=== PATIENT | female | born 1995 | race Caucasian/White ===

== ENCOUNTER 2020-04-07 19:10 | Outpatient (CLI) | payer OTHER ==
[2020-04-07 20:11] LABS: APPEARANCE,URINE CLEAR; BILIRUBIN,URINE NEGATIVE (NEGATIVE); COLOR,URINE YELLOW; GLUCOSE, URINE NEGATIVE (NEGATIVE); KETONES,URINE NEGATIVE (NEGATIVE); LEUKOCYTE ESTERASE,URINE NEGATIVE (NEGATIVE); NITRITE,URINE NEGATIVE (NEGATIVE); PROTEIN,URINE NEGATIVE (NEGATIVE); URINE SPECIFIC GRAVITY 1.011; UROBILINOGEN,URINE NEGATIVE mg/dL (<2.0)
[2020-04-07 20:22] LABS: URINE AMPHETAMINES SCREEN NEGATIVE; URINE BARBITURATES SCREEN NEGATIVE; URINE BENZODIAZEPINES SCREEN NEGATIVE; URINE COCAINE SCREEN NEGATIVE; URINE MARIJUANA (THC) SCREEN NEGATIVE; URINE METHADONE SCREEN NEGATIVE; URINE PHENCYCLIDINE SCREEN NEGATIVE
[2020-04-07] MEDS ORDERED: RINGERS SOLUTION,LACTATED 1,000 ML IV PRN (20:24)
[2020-04-07] MEDS ORDERED: CEFTRIAXONE INJ 1000 MG VIAL ONE (20:27)
[2020-04-07] MEDS ORDERED: CEFTRIAXONE INJ 1000 MG VIAL IM ONE (21:00)
== END 2020-04-07 21:42 | disposition home or self-care (01) ==
LOC: LC 19:10
PROVIDERS: ATTEND Obstetrics & Gynecology
DX: Z34.92 Encounter for supervision of normal pregnancy, unspecified, second trimester (principal); Z3A.26 26 weeks gestation of pregnancy
CPT/HCPCS: 59899; 87086; 81001; 80307; J0696

== ENCOUNTER 2020-06-29 06:47 | Inpatient (IN) | payer OTHER ==
[2020-06-29] MEDS ORDERED: RINGERS SOLUTION,LACTATED 500 ML IV ONE (07:19)
[2020-06-29] MEDS ORDERED: RINGERS SOLUTION,LACTATED 1,000 ML IV ONE (07:19)
[2020-06-29] MEDS ORDERED: MISOPROSTOL 0.2 MG TABLET ONE (07:25)
[2020-06-29] MEDS ORDERED: OXYTOCIN 10 UNIT/ML VIAL ONE ×2 (07:25→15:48)
[2020-06-29] MEDS ORDERED: FENTANYL/BUPIVACAINE/NS/PF 300 MCG/150 ML RTUINJ EPI ONE (07:26)
[2020-06-29] MEDS ORDERED: OXYTOCIN/0.9 % SODIUM CHLORIDE 30 UNIT/500 ML RTUINJ ONE (07:26)
[2020-06-29] MEDS ORDERED: EPHEDRINE SULFATE INJ 50 MG/1 ML AMPULE ONE (07:26)
[2020-06-29] MEDS ORDERED: ROPIVACAINE HCL 0.5% INJ/PF (5 MG/1 ML) 30 ML SDV ONE (07:28)
[2020-06-29 07:45] LABS: APPEARANCE,URINE CLOUDY; BILIRUBIN,URINE NEGATIVE (NEGATIVE); COLOR,URINE YELLOW; GLUCOSE, URINE NEGATIVE (NEGATIVE); KETONES,URINE NEGATIVE (NEGATIVE); LEUKOCYTE ESTERASE,URINE TRACE (NEGATIVE); NITRITE,URINE NEGATIVE (NEGATIVE); PROTEIN,URINE NEGATIVE (NEGATIVE); URINE SPECIFIC GRAVITY 1.011; UROBILINOGEN,URINE NEGATIVE mg/dL (<2.0)
[2020-06-29 07:55] LABS: ABSOLUTE EOSINOPHILS # (AUTO) 0.1 10^3/uL (0.0-0.6); ABSOLUTE LYMPHOCYTES (AUTO) 1.1 10^3/uL (0.5-4.7); ABSOLUTE MONOCYTES (AUTO) 0.6 10^3/uL (0.1-1.4); ABSOLUTE NEUT (AUTO) 6.6 10^3/uL (1.7-8.2); BASOPHILS % (AUTO) 0.5 % (0-2); EOSINOPHILS % (AUTO) 0.6 % (0-6); HEMATOCRIT 34.4 % (36.0-47.0); HEMOGLOBIN 11.8 g/dL (12.0-15.5); MEAN CORPUSCULAR HEMOGLOBIN 30.3 pg (27.0-33.4); MEAN CORPUSCULAR HGB CONC 34.3 g/dL (32.0-36.0); MEAN CORPUSCULAR VOLUME 88 fl (80-97); MONOCYTES % (AUTO) 7.4 % (3-13); PLATELET COUNT 153 10^3/uL (150-450); RED BLOOD COUNT 3.89 10^6/uL (3.72-5.28); SEGMENTED NEUTROPHILS % (AUTO) 78.5 % (42-78); TOTAL CELLS COUNTED % (AUTO) 100 %; WHITE BLOOD COUNT 8.4 10^3/uL (4.0-10.5)
[2020-06-29 08:01] LABS: URINE AMPHETAMINES SCREEN NEGATIVE; URINE BARBITURATES SCREEN NEGATIVE; URINE BENZODIAZEPINES SCREEN NEGATIVE; URINE COCAINE SCREEN NEGATIVE; URINE MARIJUANA (THC) SCREEN NEGATIVE; URINE METHADONE SCREEN NEGATIVE; URINE PHENCYCLIDINE SCREEN NEGATIVE
--- NOTE | 2020-06-29 08:06 | Admission Physical ---
Datetime Report Generated by CPN: 06/29/2020 08:06 CURRENT ADMISSION Hx Assessment: The History has been Reviewed and is Current Chief Complaint: Uterine Contractions; Suspected Ruptured Membranes Chief Complaint Other: G1 at 38.4 wks EGA with SROM . Reports water breaking this am clear. Admit Impression : Term, Intrauterine ; Active Labor; Ruptured Membranes Admit Plan: Admit to Unit; Initiate Labor Protocol ALLERGIES Medication Allergies: No Medication Allergies: No Known Allergies (06/29/2020) Latex: No Latex Allergies (Annotations: Data stored by [facility] on behalf of user) OBSTETRICAL HISTORY EDC: 07/09/2020 00:00 : 1 Para: 0 Term: 0 : 0 SAB: 0 IAB: 0 Livin Gestational Diabetes: No Rh Sensitization: No Incompetent Cervix: No LEVON: No Infertility: No ART Treatment: No Uterine Anomaly: No IUGR: No Hx Previous C/S: No Macrosomia: No Hx Loss/Stillborn: No PIH: No Hx : No Placenta Previa/Abruption: No Depression/PP Depression: No PTL/PROM: No Post Hemorrhage: No Current Procedures: Ultrasound; NST SEE RECORDS Alcohol: No Marijuana : No Cocaine: No Other Illicit Drugs: No Cigarettes: Former Smoker. [id number] Advised to Stop: Yes Cigarette Comments: NO cigarettes in the past but nicotine vaping MEDICAL HISTORY Diabetes: No Blood Transfusion: No Pulmonary Disease (Asthma, TB): No Breast Disease: No Bumper And Painter Surgery: No Heart Disease: No Hosp/Surgery: No Autoimmune Disorder: No Anesthetic Complications: No Kidney Disease: No Abnormal Pap Smear: No Neuro/Epilepsy: No Psychiatric Disorders: No Other Medical Diseases: No Hepatitis/Liver Disease: No Significant Family History: No Varicosities/Phlebitis: No Trauma/Violence : No Thyroid Dysfunction: No INFECTIOUS HISTORY Gonorrhea: No Genital Herpes: No Chlamydia: No Tuberculosis: No Syphilis: No Hepatitis: No HIV/AIDS Exposure: No Rash or Viral Illness: No HPV: No PHYSICAL EXAM General: Normal HEENT: Normal Neurologic: Normal Thyroid: Normal Heart: Normal Lungs: Normal Breast: Normal Back: Normal Abdomen: Normal Genitourinary Exam: Normal Extremities: Normal DTRs: Normal Pelvic Type: Adequate Vital Signs: Reviewed; Within Normal Limits VAGINAL EXAM Dilatation: 5 Effacement: 80 Station: 1 MEMBRANES Membranes: Ruptured Amniotic Fluid Color: Clear FETUS A EGA: 38.4 Monitoring: External US FHR- Baseline: 135 Variability: Moderate 6-25bpm Accelerations: 15X15 Decelerations: None FHR Category: Category I Presentation: Transverse Admit Comment: G1 at 38.4 wks EGA in active labor -Admit to LDR -NPO and IVFs: LR at 150cc/hr after 1 liter bolus -GBS negative -CEFM and TOCO -Plan for INFORMED CONSENT Informed Consent Obtained: Vaginal Delivery; Section Delivery; Induction of Labor; Risks, Benefits and Alternatives Discussed Signature: with User ID: Chely : with User ID: Chely
[2020-06-29] MEDS ORDERED: ROPIVACAINE HCL 0.2% INJ/PF (2 MG/ML) 20 ML SDV ONE (08:56)
[2020-06-29] MEDS ORDERED: LIDOCAINE 1% INJ-PF (10 MG/ML) 30 ML SDV ONE (11:00)
[2020-06-29] MEDS ORDERED: ACETAMINOPHEN WITH CODEINE #3 TABLET PO PRN ×2 (15:33)
[2020-06-29] MEDS ORDERED: DIPHENHYDRAMINE HCL 25 MG CAPSULE PO PRN (15:33)
[2020-06-29] MEDS ORDERED: MEASLES,MUMPS&RUBELLA VACC/PF 0.5 ML VIAL SUBCUT PRN (15:33)
[2020-06-29] MEDS ORDERED: GLYCERIN/WITCH HAZEL LEAF 1 EACH MED..WIPE TP PRN (15:33)
[2020-06-29] MEDS ORDERED: ZOLPIDEM TARTRATE 5 MG TABLET PO PRN (15:33)
[2020-06-29] MEDS ORDERED: DIPH/PERTUSS(ACELL)/TETANUS VAC/PF 0.5 ML SYR (>=10YO) IM PRN (15:33)
[2020-06-29] MEDS ORDERED: OXYTOCIN/0.9 % SODIUM CHLORIDE 30 UNIT/500 ML RTUINJ IV PRN (15:33)
[2020-06-29] MEDS ORDERED: VARICELLA VACC/PF (1350 UNIT/0.5 ML) 0.5 ML VIAL SUBCUT PRN (15:33)
[2020-06-29] MEDS ORDERED: MAGNESIUM HYDROXIDE SUSP 30 ML UDCUP PO PRN (15:33)
[2020-06-29] MEDS ORDERED: MAG HYDROX/AL HYDROX/SIMETH SUSP 30 ML UDCUP PO PRN (15:33)
[2020-06-29] MEDS ORDERED: DIBUCAINE 1% OINTMENT 28 GM TP PRN (15:33)
[2020-06-29] MEDS ORDERED: ACETAMINOPHEN 650 MG SUPP.RECT PR PRN (15:33)
[2020-06-29] MEDS ORDERED: PSEUDOEPHEDRINE HCL 30 MG TABLET PO PRN (15:33)
[2020-06-29] MEDS ORDERED: ACETAMINOPHEN 325 MG TABLET PO PRN (15:33)
[2020-06-29] MEDS ORDERED: FAMOTIDINE 20 MG TABLET PO PRN (15:33)
--- NOTE | 2020-06-29 16:30 | Birth Certificate Data ---
Cert Data Datetime Report Generated by CPN: 06/29/2020 16:29 CERTIFICATE DATA Delivery Provider: Sobia Brunson MD (04/07/2020 19:17:Juany Jordan RN) 47a. Care: Yes (04/07/2020 19:17:Juany Jordan RN) 47c. Date of Last Visit: 06/25/2020 00:00 (04/07/2020 19:17:Juany Jordan RN) 48a. Number of Prev Live Births: 0 (04/07/2020 19:17:Juany Jordan RN) 48b. Now Livin (04/07/2020 19:17:Juany Jordan RN) 48c. Live Births Now : 0 (04/07/2020 19:17:QS system process) 48e. Losses: 0 (04/07/2020 19:17:Juany Jordan RN) RISK FACTORS IN THIS 49a. Diabetes: No (04/07/2020 19:17:Juany Jordan RN) 49c. Previous Births: 0 (04/07/2020 19:17:Juany Jordan RN) 49d. Stillborns: No (04/07/2020 19:17:Juany Jordan RN) 49d. IUGR: No (04/07/2020 19:17:Juany Jordan RN) 49e. Infertility Treatment: No (04/07/2020 19:17:Juany Jordan RN) Mother's Height 50b. Height Inches: 64 (06/29/2020 06:59:QS system process) Mother's Weight 51a. Pre- Weight (lbs): 137 (04/07/2020 19:17:Juany Jordan RN) 51b. Weight at Delivery (lbs): 178 (06/29/2020 06:59:QS system process) 52. Dt Last Normal Menses Began: 09/23/2019 00:00 (04/07/2020 19:17:Juany Jordan RN) Infections Present/Treated 53a. Gonorrhea: No (04/07/2020 19:17:Juany Jordan RN) Results this Hospital Visit : Negative (04/07/2020 19:17:Juany Jordan RN) 53b. Syphilis: No (04/07/2020 19:17:Juany Jordan RN) Results this Hospital Visit: NONREACTIVE (06/29/2020 07:42:QS system process) 53c. Chlamydia: No (04/07/2020 19:17:Juany Jordan RN) Results this Hospital Visit: Negative (Annotations: Data stored by [facility] on behalf of user) (04/07/2020 19:17:Juany Jordan RN) 53d. Hepatitis B: No (04/07/2020 19:17:Juany Jordan RN) Results this Hospital Visit: Negative (Annotations: Data stored by [facility] on behalf of user) (04/07/2020 19:17:Juany Jordan RN) 53h. Mother Tested for HBsAG: Yes (04/07/2020 19:17:Marcia Ortiz RN) 53i. Date Tested: 12/27/2019 00:00 (04/07/2020 19:17:Marcia Ortiz RN) 53j. Test Result: Negative (Annotations: Data stored by [facility] on behalf of user) (04/07/2020 19:17:Juany Jordan RN) Obstetric Procedures 54a, b, c. Obstetric Procedures: Ultrasound; NST (04/07/2020 19:17:Juany Jordan RN) Cigarette Smoking Cigarette Smoking: Former Smoker. [id number] (04/07/2020 19:17:Juany Jordan RN) 55a. 3 Months Before Preg - Ci (04/07/2020 19:17:Juany Jordan RN) 55a. Packs: 0 (04/07/2020 19:17:Juany Jordan RN) 55b. 1st Trimester of Preg- Ci (04/07/2020 19:17:Juany Jordan RN) 55b. Packs: 0 (04/07/2020 19:17:Juany Jordan RN) 55c. 2nd Trimester of Preg- Ci (04/07/2020 19:17:Juany Jordan RN) 55c. Packs: 0 (04/07/2020 19:17:Juany Jordan RN) 55d. 3rd Trimester of Preg- Ci (04/07/2020 19:17:Juany Jordan RN) 55d. Packs: 0 (04/07/2020 19:17:Juany Jordan RN) Onset of Labor 56a. PROM >12 Hrs: 8.93 (04/07/2020 19:17:QS system process) 56b. Precipitous Labor <3 Hrs: 10 (06/29/2020 08:37:QS system process) 56c. Prolonged Labor > 20 Hrs: 10 (06/29/2020 08:37:QS system process) 57a. Induction of Labor: N/A (04/07/2020 19:17:Marcia Ortiz RN) 57c. Non-Vertex Presentation A: Vertex (04/07/2020 19:17:Juany Jordan RN) 57d. Steroids - Lung Mat: None (04/07/2020 19:17:Juany Jordan RN) 57d. Steroids - Lung Mat: Not Applicable (04/07/2020:17:Juany Jordan RN) 57g. Moderate/Heavy Meconium: Clear (04/07/2020 19:17:Juany Jordan RN) 57h. Intolerance of Labor: N/A (04/07/2020 19:17:Marcia Ortiz RN) : N/A (04/07/2020 19:17:Marcia Ortiz RN) 57i. Epidural/Spinal Anesthesia: Epidural (04/07/2020 19:17:Juany Jordan RN) Method of Delivery 58a. Forceps - Unsuccessful A: N/A (04/07/2020:17:Juany Jordan RN) 58b. Vacuum - Unsuccessful A: N/A (04/07/2020:17:Juany Jordan RN) 58c. Presentation at 58c. Presentation at - A : Vertex (04/07/2020 19:17:Juany Jordan RN) 58c. Presentation at - A : N/A (04/07/2020 19:17:Juany Jordan RN) 58c. Presentation at - A : Cephalic (06/29/2020 12:52:Juany Jordan RN) Final Route and Method of Del 58d. Baby A Route/Delivery: Vaginal (06/29/2020 15:11:Marcia Ortiz RN) 58e. Trial of Labor Attempted: No (04/07/2020 19:17:Marcia Ortiz RN) 58e. Trial of Labor Attempted A: N/A (04/07/2020 19:17:Juany Jordan RN) 58e. Trial of Labor Attempted B: N/A (04/07/2020 19:17:Marcia Ortiz RN) Birthweight Baby A: 2968 (04/07/2020 19:17:Juany Jordan RN) 60a. Pounds : 6 (04/07/2020 19:17:QS system process) 60b. Ounces: 9 (04/07/2020 19:17:QS system process) 61. GA at Delivery Baby A: 38.4 (04/07/2020 19:17:Juany Julian, RN) : Early Term- 37- 38.6 Weeks (04/07/2020 19:17:QS system process) 62a. 5 Minute Baby A: 9 (04/07/2020 19:17:QS system process) 62b. 10 Minute Baby A: 9 (04/07/2020 19:17:QS system process)
--- NOTE | 2020-06-29 16:30 | Delivery Summary ---
Del Sum A-C Datetime Report Generated by CPN: 06/29/2020 16:29 DELIVERY PERSONNEL DELIVERY PERSONNEL: [id number] Delivery Doctor:: Sobia Brunson MD OXYGEN THERAPIST:: Shannon Sepulveda CRNA Labor and Delivery Nurse:: Juany Jordan RNresp ther Nurse:: Marcia Ortiz RN Neonatal Nurse Practitioner:: SEDRICK Abreu MATERNAL INFORMATION Delivery Anesthesia: Epidural Medications After Delivery: Pitocin 30 Units in 500ml NS/D5W Estimated Blood Loss (ml): 150 Maternal Complications: None LABOR SUMMARY EDC: 07/09/2020 00:00 No. Babies in Womb: 1 Attempted: No Labor Anesthesia: Epidural LABOR INFORMATION Reason for Induction: Not Applicable Onset of Labor: 06/29/2020 05:00 Complete Dilatation: 06/29/2020 13:15 Oxytocin: N/A Group B Beta Strep: negative Antibiotics # of Doses: 0 Steroids Given: None Reason Steroids Not Administered: Not Applicable MEMBRANES Membranes Rupture Method: Spontaneous Rupture of Membranes: 06/29/2020 06:15 Length of Rupture (hr): 8.93 Amniotic Fluid Color: Clear Amniotic Fluid Amount: Moderate Amniotic Fluid Odor: Normal STAGES OF LABOR Stage 1 hr: 8 Stage 1 min: 15 Stage 2 hr: 1 Stage 2 min: 56 Stage 3 hr: 0 Stage 3 min: 3 Total Time in Labor hr: 10 Total Time in Labor min: 14 VAGINAL DELIVERY Laceration Extension #1: Second Degree Laceration Repair: Yes Sponge Count Correct: Yes Sharps Count Correct: Yes CSECTION DELIVERY Primary Indication: N/A Secondary Indication: N/A CSection Incidence: N/A Labor: N/A Elective: N/A CSection Incision: N/A BABY A INFORMATION Delivery Date/Time: 06/29/2020 15:11 Method of Delivery: Vaginal Nurse Controlled Delivery: No Born in Route : No : N/A Forceps: N/A Vacuum Extraction: N/A Shoulder Dystocia : No PRESENTATION/POSITION BABY A Presentation: Cephalic Cephalic Presentation: Vertex Breech Presentation: N/A PLACENTA INFORMATION BABY A Placenta Delivery Time : 06/29/2020 15:14 Placenta Method of Delivery: Spontaneous Placenta Status: Delivered SCORES BABY A Heart Rate 1 min: >100 bpm Resp Effort 1 min: Good Cry Reflex Irritability 1 min: Cough or Sneeze or Pulls Away Muscle Tone 1 min: Active Motion Color 1 min: Body [place], Extremities Blue Resuscitation Effort 1 min: Tactile Stimulation SCORE 1 MIN: 9 Heart Rate 5 min: >100 bpm Resp Effort 5 min: Good Cry Reflex Irritability 5 min: Cough or Sneeze or Pulls Away Muscle Tone 5 min: Active Motion Color 5 min: Body [place], Extremities Blue Resuscitation Effort 5 min: Tactile Stimulation SCORE 5 MIN: 9 Heart Rate 10 min: >100 bpm Resp Effort 10 min: Good Cry Reflex Irritability 10 min: Cough or Sneeze or Pulls Away Muscle Tone 10 min: Active Motion Color 10 min: Body [place], Extremities Blue Resuscitation Effort 10 min: N/A SCORE 10 MIN: 9 INFANT INFORMATION BABY A Gestational Age at Delivery: 38.4 Gestational Status: Early Term- 37- 38.6 Weeks Outcome : Liveborn Condition : Stable Infant Sex: Male IDENTIFICATION BABY A Verification Date/Time: 06/29/2020 15:43 ID Band Number: [id number] Mother's Name Verified: Yes RN Verifying : Alexys Ortiz RN, LMarbella Jordan RN WEIGHT/LENGTH BABY A Infant Birthweight (gm): 2968 Infant Weight (lb): 6 Infant Weight (oz): 9 Length (in): 19.25 Infant Length (cm): 48.90 CORD INFORMATION BABY A No. Cord Vessels: 3 Nuchal Cord : N/A Cord Blood Taken: Yes-For Eval (Mom's Blood Type - or O+) Infant Suction: None ASSESSMENT BABY A Infant Complications: None Physical Findings at Delivery: Within Normal Limits Infant Respirations: Appears Normal Skin to Skin: Yes Skin to Skin Time (min): 65 [employer] Director/ALS Called : No Transferred To: Remains with Mother BABY B INFORMATION : N/A
[2020-06-29] MEDS: IBUPROFEN 800 MG TABLET PO SCH ×2 (17:50→22:50)
[2020-06-29] MEDS: DOCUSATE SODIUM 100 MG CAPSULE PO SCH (17:55)
[2020-06-29] MEDS: FERROUS SULFATE 325 MG TABLET PO SCH (17:55)
[2020-06-29] MEDS: BENZOCAINE/MENTHOL AEROSOL SPRAY 56 ML TOP PRN (20:10)
[2020-06-30] MEDS: IBUPROFEN 800 MG TABLET PO SCH ×3 (05:53→21:49)
[2020-06-30 06:18] LABS: HEMATOCRIT 29.6 % (36.0-47.0); HEMOGLOBIN 10.1 g/dL (12.0-15.5); MEAN CORPUSCULAR HEMOGLOBIN 30.4 pg (27.0-33.4); MEAN CORPUSCULAR HGB CONC 34.1 g/dL (32.0-36.0); MEAN CORPUSCULAR VOLUME 89 fl (80-97); PLATELET COUNT 146 10^3/uL (150-450); RED BLOOD COUNT 3.31 10^6/uL (3.72-5.28); WHITE BLOOD COUNT 7.8 10^3/uL (4.0-10.5)
--- NOTE | 2020-06-30 10:38 | PDOC PROGRESS REPORT ---
Subjective-OB Progress Note for:: 06/30/20 Subjective: doing well, no c/o, , ambulating, eating and drinking, hsb in room Physical Exam (OB) Vital Signs: Temp Pulse Resp BP Pulse Ox 97.3 F 79 18 109/68 98 06/30/20 07:17 06/30/20 07:17 06/30/20 07:17 06/30/20 07:17 06/30/20 07:17 Intake & Output 06/29/20 06/30/20 07/01/20 06:59 06:59 06:59 Intake Total 800 Output Total 500 Balance 300 Weight 81.4 kg - PIH/Pre-Eclampsia Headache: Absent Epigastric Pain: No Visual Changes: No - Maternal Morbidity 59. Maternal Morbidity (serious complications experinced by the mother ass ociated with labor and delivery: None of the above - Lochia Lochia Amount: Small 10-25 ml Lochia Color: Rubra/Red - Abdomen Description: Soft, Round Hernia Present: No Fundal Description: Firm, Midline Fundal Height: u/u - u/2 Objective-Diagnostic Laboratory: 06/30/20 06:07 06/30/20 06:07 WBC 7.8 RBC 3.31 L Hgb 10.1 L Hct 29.6 L MCV 89 MCH 30.4 MCHC 34.1 RDW 13.0 Plt Count 146 L Assessment and Plan(PN) - Assessment and Plan (1) Vaginal delivery Is this a current diagnosis for this admission?: Yes (2) Spontaneous rupture of membranes Is this a current diagnosis for this admission?: Yes - Time Spent with Patient Time with patient: Less than 15 minutes Medications reviewed and adjusted accordingly: Yes - Disposition Anticipated Discharge Disposition: Home, Self Care Anticipated Discharge Timeframe: within 24 hours
[2020-06-30] MEDS: DOCUSATE SODIUM 100 MG CAPSULE PO SCH ×2 (10:54→17:18)
[2020-06-30] MEDS: FERROUS SULFATE 325 MG TABLET PO SCH ×2 (10:54→17:18)
[2020-06-30] MEDS: PRENATAL VITAMIN W DHA CAPSULE PO SCH (10:55)
[2020-06-30] MEDS: SENNOSIDES/DOCUSATE 8.6-50 MG 1 EACH TABLET PO SCH (10:55)
[2020-07-01] MEDS: IBUPROFEN 800 MG TABLET PO SCH ×2 (05:44→14:08)
[2020-07-01] MEDS: SENNOSIDES/DOCUSATE 8.6-50 MG 1 EACH TABLET PO SCH (09:39)
[2020-07-01] MEDS: PRENATAL VITAMIN W DHA CAPSULE PO SCH (09:39)
[2020-07-01] MEDS: FERROUS SULFATE 325 MG TABLET PO SCH (09:39)
[2020-07-01] MEDS: DOCUSATE SODIUM 100 MG CAPSULE PO SCH (09:39)
[2020-07-01] MEDS: BENZOCAINE/MENTHOL AEROSOL SPRAY 56 ML TOP PRN (09:41)
--- NOTE | 2020-07-01 10:59 | PDOC PROGRESS REPORT ---
Subjective-OB Progress Note for:: 07/01/20 Subjective: Doing well, no c/o, changed to bottle feeding, ambulating, voiding, ready to go home Physical Exam (OB) Vital Signs: Temp Pulse Resp BP Pulse Ox 97.7 F 71 16 122/69 100 07/01/20 08:19 07/01/20 07:33 07/01/20 07:33 07/01/20 07:33 07/01/20 07:33 Intake & Output 06/30/20 07/01/20 07/02/20 06:59 06:59 06:59 Intake Total 800 800 400 Output Total 500 Balance 300 800 400 - PIH/Pre-Eclampsia DTR's: 1 + Clonus: Negative Headache: Absent Epigastric Pain: No Visual Changes: No - Maternal Morbidity 59. Maternal Morbidity (serious complications experinced by the mother associated with labor and delivery: None of the above - Lochia Lochia Amount: Scant < 10 ml Lochia Color: Rubra/Red - Abdomen Description: Soft, Round Hernia Present: No Fundal Description: Firm, Midline Fundal Height: u/u - u/2 Objective-Diagnostic Laboratory: 06/30/20 06:07 Assessment and Plan(PN) - Assessment and Plan (1) Vaginal delivery Is this a current diagnosis for this admission?: Yes (2) Spontaneous rupture of membranes Is this a current diagnosis for this admission?: Yes - Time Spent with Patient Time with patient: Less than 15 minutes Medications reviewed and adjusted accordingly: Yes - Disposition Anticipated Discharge Disposition: Home, Self Care Anticipated Discharge Timeframe: within 24 hours
--- NOTE | 2020-07-01 11:04 | PDOC DISCHARGE SUMMARY ---
Impression - Admit/DC Date/PCP Admission Date/Primary Care Provider: 06/29/20 07:24 ELVIA GUAN MD Discharge Date: 07/01/20 - Discharge Diagnosis (1) Vaginal delivery Is this a current diagnosis for this admission?: Yes (2) Spontaneous rupture of membranes Is this a current diagnosis for this admission?: Yes - Additional Information Resuscitation Status: Full Code Discharge Diet: As Tolerated, Regular Discharge Activity: Activity As Tolerated, Pelvic Rest Referrals: ELVIA GUAN MD [Primary Care Provider] - (rtc 4 weeks, wha) Home Medications: Prenat 115/Iron Fum/Folic/Dss [ 19 Tablet] 1 tab PO DAILY 06/29/20 HPI Gestational Age: 38.4 Reason(s) for Admission: Onset of Labor Procedures: Ultrasound Intrapartum Procedure(s): Spontaneous Vaginal Delivery Complication(s): Laceration-Perineal Laceration-Degree: 2nd Hospital Course Hospital Course: routine 59. Maternal Morbidity (serious complications experinced by the mother associated with labor and delivery: None of the above Results Laboratory Results: WBC 7.8 10^3/uL (4.0-10.5) 06/30/20 06:07 RBC 3.31 10^6/uL (3.72-5.28) L 06/30/20 06:07 Hgb 10.1 g/dL (12.0-15.5) L 06/30/20 06:07 Hct 29.6 % (36.0-47.0) L 06/30/20 06:07 MCV 89 fl (80-97) 06/30/20 06:07 MCH 30.4 pg (27.0-33.4) 06/30/20 06:07 MCHC 34.1 g/dL (32.0-36.0) 06/30/20 06:07 RDW 13.0 % (11.5-14.0) 06/30/20 06:07 Plt Count 146 10^3/uL (150-450) L 06/30/20 06:07 Lymph % (Auto) 13.0 % (13-45) 06/29/20 07:42 [place] % (Auto) 7.4 % (3-13) 06/29/20 07:42 Eos % (Auto) 0.6 % (0-6) 06/29/20 07:42 Baso % (Auto) 0.5 % (0-2) 06/29/20 07:42 Absolute Neuts (auto) 6.6 10^3/uL (1.7-8.2) 06/29/20 07:42 Absolute Lymphs (auto) 1.1 10^3/uL (0.5-4.7) 06/29/20 07:42 Absolute Monos (auto) 0.6 10^3/uL (0.1-1.4) 06/29/20 07:42 Absolute Eos (auto) 0.1 10^3/uL (0.0-0.6) 06/29/20 07:42 Absolute Basos (auto) 0.0 10^3/uL (0.0-0.2) 06/29/20 07:42 Seg Neutrophils % 78.5 % (42-78) H 06/29/20 07:42 Urine Color YELLOW 06/29/20 06:55 Urine Appearance CLOUDY 06/29/20 06:55 Urine pH 7.0 (5.0-9.0) 06/29/20 06:55 Ur Specific [place] 1.011 06/29/20 06:55 Urine Protein NEGATIVE mg/dL (NEGATIVE) 06/29/20 06:55 Urine Glucose (UA) NEGATIVE mg/dL (NEGATIVE) 06/29/20 06:55 Urine Ketones NEGATIVE mg/dL (NEGATIVE) 06/29/20 06:55 Urine Blood MODERATE (NEGATIVE) H 06/29/20 06:55 Urine Nitrite NEGATIVE (NEGATIVE) 06/29/20 06:55 Urine Bilirubin NEGATIVE (NEGATIVE) 06/29/20 06:55 Urine Urobilinogen NEGATIVE mg/dL (<2.0) 06/29/20 06:55 Ur Leukocyte Esterase TRACE (NEGATIVE) H 06/29/20 06:55 Urine Ascorbic Acid NEGATIVE (NEGATIVE) 06/29/20 06:55 Urine Opiates Screen NEGATIVE 06/29/20 06:55 Urine Methadone Screen NEGATIVE 06/29/20 06:55 Ur Barbiturates Screen NEGATIVE 06/29/20 06:55 Ur Phencyclidine Scrn NEGATIVE 06/29/20 06:55 Ur Amphetamines Screen NEGATIVE 06/29/20 06:55 U Benzodiazepines Scrn NEGATIVE 06/29/20 06:55 Urine Cocaine Screen NEGATIVE 06/29/20 06:55 U Marijuana (THC) Screen NEGATIVE 06/29/20 06:55 RPR NONREACTIVE (NONREACTIVE) 06/29/20 07:42 Blood Type A POSITIVE 06/29/20 07:42 Antibody Screen NEGATIVE 06/29/20 07:42 Plan Health Concerns: routine Plan of Treatment: dc home, rev S&S to report Goals: no complications Time Spent: Less than 30 Minutes
[2020-07-01 12:15] VITALS: BP 128/69
== END 2020-07-01 14:43 | disposition home or self-care (01) | DRG 807 ==
LOC: LC 06:47 → LR 07:24 → 2S 17:30
PROVIDERS: ADMIT Obstetrics & Gynecology; ATTEND Obstetrics & Gynecology
PROC: 10E0XZZ Delivery of Products of Conception, External Approach (ICD-10-PCS; principal; 2020-06-29)
PROC: 0KQM0ZZ Repair Perineum Muscle, Open Approach (ICD-10-PCS; 2020-06-29)
DX: O70.1 Second degree perineal laceration during delivery (principal); Z37.0 Single live birth; Z20.828 Contact with and (suspected) exposure to other viral communicable diseases; Z28.21 Immunization not carried out because of patient refusal; Z3A.38 38 weeks gestation of pregnancy; Z87.891 Personal history of nicotine dependence
CPT/HCPCS: 36415; 80307; 81005; 85025; 85027; 86592; 86850; 86900; 86901; J2590; J2795; J3010; J3490